=== PATIENT | male | born 1980 | race Caucasian/White ===

== ENCOUNTER 2019-07-18 19:32 | Emergency (ER) | payer BC ==
[2019-07-18] MEDS ORDERED: DIPH/PERTUSS(ACELL)/TETANUS VAC/PF 0.5 ML SYR (>=10YO) IM ONE (20:13)
--- NOTE | 2019-07-18 20:14 | ER Document Report ---
ED Medical Screen (RME) - General Chief Complaint: Finger Injury Stated Complaint: FINGER INJURY Time Seen by Provider: 07/18/19 20:08 Mode of Arrival: Ambulatory Information source: Patient Notes: Patient presents with a left thumb laceration. Was cutting peppers when his dog bumped him in he dropped his finger. Is not sure when his last tetanus was. Reports that happened at 1800 and thumb is still bleeding. Avulsion noted to the left thumb. Still actively bleeding. I have greeted and performed a rapid initial assessment of this patient. A comprehensive ED assessment and evaluation of the patient, analysis of test results and completion of the medical decision making process will be conducted by additional ED providers. Dictation of this chart was performed using voice recognition software; therefore, there may be some unintended grammatical errors.
--- NOTE | 2019-07-18 21:18 | RADIOLOGY REPORT (SQ) ---
EXAM DESCRIPTION: XR FINGERS COMPLETED DATE/TME: 07/18/2019 20:11 CLINICAL HISTORY: 39 years, Male, finger laceration COMPARISON: None. NUMBER OF VIEWS: Three TECHNIQUE: Frontal, oblique, and lateral radiographs of the left hand were obtained LIMITATIONS: None. FINDINGS: Focal soft tissue swelling/laceration is noted about the distal aspect of the first digit. Otherwise, visualized osseous structures appear normal without acute fracture or dislocation. No obvious retained radiopaque foreign body is identified. IMPRESSION: Focal soft tissue swelling/laceration about the distal aspect of the first digit. No underlying acute osseous anomaly or retained radiopaque foreign body. copyright 2010 [facility]- All Rights Reserved
[2019-07-18] MEDS ORDERED: SILVER NITRATE APPLICATOR 1 APPLIC STICK..EA. 10/PACKAGE TOP ONE (23:59)
[2019-07-19] MEDS ORDERED: LIDOCAINE 1% INJ (10 MG/ML) 10 ML MDV INJ ONE
--- NOTE | 2019-07-19 00:04 | ER Document Report ---
ED General - General Chief Complaint: Laceration Stated Complaint: FINGER INJURY Time Seen by Provider: 07/18/19 20:08 Mode of Arrival: Ambulatory TRAVEL OUTSIDE OF THE [place] IN LAST 30 DAYS: No - HPI Notes: Patient was cooking in the kitchen when he sliced the distal tip of his thumb. He is right-handed dominant. He is unknown of his last tetanus shot but thinks is greater than 10 years ago. - Related Data Allergies/Adverse Reactions: No Known Allergies Allergy (Verified 07/18/19 20:18) Past Medical History - General Information source: Patient - Social History Smoking Status: Never Smoker Family History: Reviewed & Not Pertinent Patient has suicidal ideation: No Patient has homicidal ideation: No Review of Systems - Review of Systems Constitutional: No symptoms reported EENT: No symptoms reported Cardiovascular: No symptoms reported Respiratory: No symptoms reported Gastrointestinal: No symptoms reported Genitourinary: No symptoms reported Male Genitourinary: See HPI Musculoskeletal: See HPI Skin: No symptoms reported Hematologic/Lymphatic: No symptoms reported Neurological/Psychological: No symptoms reported Physical Exam - Vital signs Vitals: Pulse Resp BP Pulse Ox 95 16 135/78 H 99 07/18/19 20:17 07/18/19 20:17 07/18/19 20:17 07/18/19 20:17 - General General appearance: Appears well, Alert - HEENT Head: Normocephalic, Atraumatic Eyes: Normal Pupils: PERRL - Respiratory Respiratory status: No respiratory distress Chest status: Nontender Breath sounds: Normal Chest palpation: Normal - Cardiovascular Rhythm: Regular Heart sounds: Normal auscultation Murmur: No - Extremities General upper extremity: Other - Tip of distal left thumb has avulsion injury nonsuturable no exposed bone, approximately 5 x 6 mm Course - Vital Signs Vital signs: Temp Pulse Resp BP Pulse Ox 97.9 F 78 16 130/73 H 100 07/19/19 00:56 07/19/19 00:56 07/19/19 00:56 07/19/19 00:56 07/19/19 00:56 Procedures - Laceration/Wound Repair Left Upper Finger Thumb Wound length (cm): 1 Wound's Depth, Shape: Other - Linear avulsion distal aspect of thumb Anesthetic type: 1% Lidocaine Volume Anesthetic (mLs): 2 Wound explored: No foreign body removed Wound Repaired With: Other - Silver nitrate sticks Notes: 07/19/19 00:42 Avulsion was approximately 5 x 6 mm Discharge - Discharge Clinical Impression: Avulsion of skin of right thumb without complication Qualifiers: Encounter type: initial encounter Qualified Code(s): S61.001A - Unspecified open wound of right thumb without damage to nail, initial encounter Condition: Good Disposition: HOME, SELF-CARE Instructions: Laceration Care ([facility]), Tetanus Immunization Given ([facility])
[2019-07-19] MEDS ORDERED: DIPH/PERTUSS(ACELL)/TETANUS VAC/PF 0.5 ML SYR (>=10YO) IM ONE (00:07)
[2019-07-19 01:00] VITALS: BP 130/73
== END 2019-07-19 01:00 | disposition home or self-care (01) ==
LOC: ER 19:32
PROC: 0HQGXZZ Repair Left Hand Skin, External Approach (ICD-10-PCS; principal; 2019-07-18)
DX: S61.012A Laceration without foreign body of left thumb without damage to nail, initial encounter (principal); W45.8XXA Other foreign body or object entering through skin, initial encounter
CPT/HCPCS: 90471; 90715; 99283